=== PATIENT | male | born 1985 | race Hispanic/Latino ===

== ENCOUNTER 2018-06-10 18:55 | Emergency (ER) | payer SELFPAY ==
[2018-06-10 19:47] LABS: BASO % 0.5 % (0.0-2.0); EOS # 0.1 K/uL (0.0-0.7); EOS % 1.2 % (0.0-4.0); HEMOGLOBIN 14.3 g/dL (12.0-18.0); LYMPH # 1.7 K/uL (1.0-4.3); LYMPH % 17.5 % (20.0-40.0); MEAN CORPUSCULAR HEMOGLOBIN 31.3 pg (27.0-31.0); MEAN CORPUSCULAR HGB CONC 34.4 g/dL (33.0-37.0); MEAN PLATELET VOLUME 7.3 fL (7.2-11.7); MONO # 0.5 K/uL (0.0-0.8); MONO % 5.5 % (0.0-10.0); NEUT # 7.2 K/uL (1.8-7.0); NEUT % 75.3 % (50.0-75.0); RBC 4.57 Mil/uL (4.40-5.90); RED CELL DISTRIBUTION WIDTH 12.4 % (11.5-14.5); WHITE BLOOD COUNT 9.5 K/uL (4.8-10.8)
[2018-06-10 20:00] LABS: URINE BILIRUBIN NEGATIVE (NEGATIVE); URINE BLOOD 1+ (NEGATIVE); URINE CLARITY Clear (Clear); URINE COLOR Straw (YELLOW); URINE GLUCOSE (UA) NORMAL (Normal); URINE LEUKOCYTE ESTERASE NEG Leu/uL (Negative); URINE PROTEIN NEGATIVE (NEGATIVE); URINE UROBILINOGEN NORMAL mg/dL (0.2-1.0)
[2018-06-10 20:00] LABS: ALB/GLOB RATIO 1.7 (1.0-2.1); ALBUMIN 4.6 g/dL (3.5-5.0); ALT/SGPT 23 U/L (21-72); AST/SGOT 20 U/L (17-59); BLOOD UREA NITROGEN 13 mg/dL (9-20); CALCIUM 10.1 mg/dl (8.6-10.4); GFR NON-AFRICAN AMERICAN > 60; LIPASE 56 U/L (23-300)
--- NOTE | 2018-06-10 21:50 | C.PDOC ---
History Of Present Illness 32 year old male presents with left sided abdominal pain and flank pain that began today with several episodes of vomiting and some diarrhea. Denies blood in stool, hematuria, fever, recent travel, or sick contact. Time Seen by Provider: 06/10/18 20:35 Chief Complaint (Nursing): Abdominal Pain History Per: Patient History/Exam Limitations: no limitations Onset/Duration Of Symptoms: Hrs Current Symptoms Are (Timing): Still Present Location Of Pain/Discomfort: Other (Left sided and left flank) Quality Of Discomfort: Unable To Describe Associated Symptoms: Vomiting, Diarrhea. denies: Fever, Urinary Symptoms Exacerbating Factors: None Alleviating Factors: None Recent travel outside of the [place]: No Past Medical History Reviewed: Historical Data, Nursing Documentation, Vital Signs Vital Signs: Last Vital Signs Temp 97.8 F 06/10/18 19:03 Pulse 54 L 06/10/18 19:03 Resp 18 06/10/18 19:03 BP 145/94 H 06/10/18 19:03 Pulse Ox 100 06/10/18 19:03 - Medical History PMH: Pneumothorax Family History: States: No Known Family Hx - Social History Hx Alcohol Use: Yes Hx Substance Use: No - Immunization History Hx Tetanus Toxoid Vaccination: No Hx Influenza Vaccination: No Hx Pneumococcal Vaccination: No Review Of Systems Constitutional: Negative for: Fever, Chills Cardiovascular: Negative for: Chest Pain, Palpitations Respiratory: Negative for: Cough, Shortness of Breath Gastrointestinal: Positive for: Vomiting, Abdominal Pain, Diarrhea Genitourinary: Negative for: Dysuria, Hematuria Musculoskeletal: Negative for: Back Pain Skin: Negative for: Rash Neurological: Negative for: Weakness, Numbness Physical Exam - Physical Exam Appears: Non-toxic Skin: Normal Color, Warm Head: Atraumatic, Normacephalic Eye(s): bilateral: Normal Inspection Oral Mucosa: Moist Neck: Normal, Supple Chest: Symmetrical, No Tenderness Cardiovascular: Rhythm Regular Respiratory: Normal Breath Sounds, No Rales, No Rhonchi, No Wheezing Gastrointestinal/Abdominal: Soft, No Tenderness (No LLQ or LUQ) Back: Other (Minimal left flank tenderness) Neurological/Psych: Oriented x3, Normal Speech ED Course And Treatment - Laboratory Results Result Diagrams: 06/10/18 19:42 06/10/18 19:42 Lab Results: Total Bilirubin 0.4 mg/dL (0.2-1.3) 06/10/18 19:42 AST 20 U/L (17-59) 06/10/18 19:42 ALT 23 U/L (21-72) 06/10/18 19:42 Alkaline Phosphatase 62 U/L (38-126) 06/10/18 19:42 Total Protein 7.3 g/dL (6.3-8.3) 06/10/18 19:42 Albumin 4.6 g/dL (3.5-5.0) 06/10/18 19:42 Globulin 2.7 gm/dL (2.2-3.9) 06/10/18 19:42 Albumin/Globulin Ratio 1.7 (1.0-2.1) 06/10/18 19:42 Lipase 56 U/L (23-300) 06/10/18 19:42 Urine Color Straw (YELLOW) 06/10/18 19:43 Urine Clarity Clear (Clear) 06/10/18 19:43 Urine pH 6.0 (5.0-8.0) 06/10/18 19:43 Ur Specific Roscoe 1.004 (1.003-1.030) 06/10/18 19:43 Urine Protein Negative mg/dL (NEGATIVE) 06/10/18 19:43 Urine Glucose (UA) Normal mg/dL (Normal) 06/10/18 19:43 Urine Ketones Negative mg/dL (NEGATIVE) 06/10/18 19:43 Urine Blood 1+ (NEGATIVE) H 06/10/18 19:43 Urine Nitrate Negative (NEGATIVE) 06/10/18 19:43 Urine Bilirubin Negative (NEGATIVE) 06/10/18 19:43 Urine Urobilinogen Normal mg/dL (0.2-1.0) 06/10/18 19:43 Ur Leukocyte Esterase Neg Licha/uL (Negative) 06/10/18 19:43 Urine WBC (Auto) 2 /hpf (0-5) 06/10/18 19:43 Urine RBC (Auto) 2 /hpf (0-3) 06/10/18 19:43 O2 Sat by Pulse Oximetry: 100 (Room air) Pulse Ox Interpretation: Normal - CT Scan/US Abd/pelvis Other Rad Studies (CT/US): Read By Radiologist CT/US Interpretation: IMPRESSION: 1. There are some top normal retroperitoneal and bilateral lymph nodes without juan lymphadenopathy. 2. No evidence for ostructive uropathy as clinically questions. 3. Additional, incidental findings as described above. Medical Decision Making Medical Decision Making: Plan: * CT abd/pel * Blood work * Urinalysis * Toradol * Zofran Labs done. Patient given 1L NS bolus, zofran ivp, toradol ivp. CT done as UA showed small amount of hematuria. Scan showed no evidence of renal stone. On re-eval patient states that he feels much better and is comfortable going home. Results discussed. Advised outpatient followup. Return to the ED for any new or worsening symptoms. Disposition - Disposition Disposition: HOME/ ROUTINE Disposition Time: 23:00 Condition: GOOD Additional Instructions: MIKAELA ZEPEDA, thank you for letting us take care of you today. Your provider was Suzanna Brown MD and you were treated for ABD PAINS. The emergency medical care you received today was directed at your acute symptoms. If you were prescribed any medication, please fill it and take as directed. It may take several days for your symptoms to resolve. Return to the Emergency Department if your symptoms worsen, do not improve, or if you have any other problems. Please contact your doctor or call one of the physicians/clinics you have been referred to that are listed on the Patient Visit Information form that is included in your discharge packet. Bring any paperwork you were given at discharge with you along with any medications you are taking to your follow up visit. Our treatment cannot replace ongoing medical care by a primary care provider outside of the emergency department. Thank you for allowing the [facility] team to be part of your care today. If you had an X-Ray or CT scan: A Radiologist will review the ED reading if any change in treatment is needed we will contact you. If you had a blood, urine, or wound culture: It will take several days for the results, if any change in treatment is needed we will contact you. If you had an STI test: It will take 48 hours for the results. Please call after 1 week if you have not heard back. Instructions: Viral Gastroenteritis, Adult (DC) Forms: [employer] ([place]) - Clinical Impression Clinical Impression: Abdominal pain, Nausea, Vomiting, Diarrhea - Scribe Statement The provider has reviewed the documentation as recorded by the Scribe Marquis Garcia All medical record entries made by the Scribe were at my direction and personally dictated by me. I have reviewed the chart and agree that the record accurately reflects my personal performance of the history, physical exam, medical decision making, and the department course for this patient. I have also personally directed, reviewed, and agree with the discharge instructions and disposition.
[2018-06-10 22:42] VITALS: BP 139/84; PULSE 58; RESP 20; TEMP 98.3
[2018-06-11 05:01] VITALS: O2SAT 100
--- NOTE | 2018-06-11 08:45 | CT ---
CT abdomen and pelvis History: Flank pain. Evaluate for calculus. Comparison: None available. Technique: Multiple contiguous axial images were performed through the abdomen and pelvis without the use of intravenous contrast. Subsequently, sagittal and coronal reformatted images were obtained. This CT exam was performed using one or more of the following dose reduction techniques: Automated exposure control, adjustment of the mA and/or kV according to patient size, and/or use of iterative reconstruction technique. Findings: Lung bases are clear. No pleural or pericardial effusion. Liver is preserved. Gallbladder is preserved. 2 centimeter splenule. Adrenal glands are preserved. Pancreas is preserved. Upper abdominal bowel is grossly preserved. Right kidney: No calculi or hydronephrosis. Left Kidney: No calculi or hydronephrosis. Urinary bladder is preserved. Heterogeneous prostate measuring up to 4.7 centimeters with associated calcification. Underdistention of the sigmoid colon. Appendix is visualized and is within normal limits. Few shotty retroperitoneal, para-aortic, and inguinal lymph nodes. Degenerative changes in the spine. Impression: Shotty top normal retroperitoneal, para-aortic, and bilateral inguinal lymph nodes. Clinical correlation. Additional findings as above. A preliminary report was generated at 10:26 p.m. on 06/10/[address] Fahad Garza from [facility].
== END 2018-06-10 23:16 | disposition home or self-care (01) ==
LOC: C.ER 18:55
DX: R11.2 Nausea with vomiting, unspecified (principal); R19.7 Diarrhea, unspecified; R10.9 Unspecified abdominal pain
CPT/HCPCS: 74176; 80053; 81001; 83690; 85025; 96374; 96375; 99284; J1885; J2405